=== PATIENT | male | born 1980 | race Caucasian/White ===

== ENCOUNTER 2024-08-11 22:36 | Emergency (ER) | payer OTHER ==
[~2024-08-11] VITALS: Ht 193 cm; Wt 88.9 kg
[~2024-08-11 22:36] MED LIST: IBUP800 PO; MECL25 PO; NAPR500 PO; OXYACE5T PO; Percocet 5-3251 EACH PO; QUET25; Ultram50 MG PO; VENL25; [UNRECOGNIZED DRUG - REMARK]
[2024-08-11 22:40] VITALS: BP 148/99
[2024-08-12 00:17] LABS: CORONAVIRUS COVID-19 AG Negative (NEGATIVE); INFLUENZA A AG Negative (NEGATIVE); INFLUENZA B AG Negative (NEGATIVE)
== END 2024-08-12 00:46 | disposition home or self-care (01) ==
LOC: ER 22:36
PROVIDERS: Physician Assistant
DX: J06.9 Acute upper respiratory infection, unspecified (principal); F17.210 Nicotine dependence, cigarettes, uncomplicated; Z79.899 Other long term (current) drug therapy; Z88.5 Allergy status to narcotic agent
CPT/HCPCS: 71046; 87428-QW; 99284-25